=== PATIENT | female | born 1970 | race Caucasian/White ===

== ENCOUNTER 2020-06-23 08:58 | Outpatient (CLI) | payer OTHER, SELFPAY ==
[2020-06-23 09:45] LABS: SARS-CoV-2 Ag Positive (Negative)
== END 2020-06-23 08:59 | disposition home or self-care (01) ==
PROVIDERS: PCP Internal Medicine; Visit Provider Internal Medicine
DX: U07.1 COVID-19 (principal)
CPT/HCPCS: 87426